=== PATIENT | female | born 1985 | race Caucasian/White ===

== ENCOUNTER 2018-01-30 02:49 | Inpatient (IN) | payer MEDICAID ==
[~2018-01-30] VITALS: Ht 152.4 cm; Wt 62.6 kg
[2018-01-30 03:26] LABS: BASOPHIL % 0.7 % (0-2); PLATELET COUNT 301 x10^3mcL (130-400); RED CELL DISTRIBUTION WIDTH 13.7 % (11.5-14.5)
[2018-01-30 03:35] LABS: CALCIUM 9.2 mg/dL (8.5-10.1); CARBON DIOXIDE 22.7 mmol/L (21-32); CHLORIDE SERUM 102 mmol/L (98-107); CREATININE SERUM 0.6 mg/dL (0.6-1.0); GFR1 > 60 mL/min; GLUCOSE SERUM 111 mg/dL (74-106); POTASSIUM SERUM 3.8 mmol/L (3.5-5.1); SODIUM SERUM 136 mmol/L (136-145)
[2018-01-30 03:39] LABS: ALBUMIN 3.3 g/dL (3.4-5.0); ALKALINE PHOSPHATASE 84 U/L (46-116); ALT/SGPT 22 U/L (14-59); AST/SGOT 16 U/L (15-37); BILIRUBIN TOTAL 0.23 mg/dL (0.20-1.00); LIPASE 138 IU/L (73-393); TOTAL PROTEIN, SERUM 7.3 g/dL (6.4-8.2)
[2018-01-30 05:57] LABS: MAGNESIUM 1.6 mg/dL (1.8-2.4); PHOSPHOROUS 4.5 mg/dL (2.5-4.9)
[2018-01-30 06:03] LABS: T3 TOTAL 1.62 ng/mL
[2018-01-30 06:05] VITALS: BP 95/56
[2018-01-30 06:05] LABS: CHOLESTEROL/HDL RATIO 2.6
[2018-01-30 07:25] LABS: FREE T4 1.11 ng/dL (0.76-1.46)
[2018-01-30 07:31] LABS: T4(THYROXINE) 13.7 ug/dL (4.7-13.3)
[2018-01-30 09:02] VITALS: BP 106/68
[2018-01-30 12:09] LABS: microscopic required? YES; urine erythrocyte 2+ (NEGATIVE)
[2018-01-30 12:17] LABS: AMPHETAMINE QUAL UR NONE DETECTED (NEG <=1000)
[2018-01-30 13:04] VITALS: BP 104/67
[2018-01-30 16:43] VITALS: BP 94/58
[2018-01-30 21:06] VITALS: BP 105/65
[2018-01-31 05:48] VITALS: BP 99/63
[2018-01-31 06:17] LABS: BASOPHIL % 0.2 % (0-2); PLATELET COUNT 264 x10^3mcL (130-400); RED CELL DISTRIBUTION WIDTH 13.9 % (11.5-14.5)
[2018-01-31 06:22] LABS: CALCIUM 8.5 mg/dL (8.5-10.1); CARBON DIOXIDE 21.1 mmol/L (21-32); CHLORIDE SERUM 105 mmol/L (98-107); CREATININE SERUM 0.5 mg/dL (0.6-1.0); GFR1 > 60 mL/min; GLUCOSE SERUM 82 mg/dL (74-106); POTASSIUM SERUM 3.7 mmol/L (3.5-5.1); SODIUM SERUM 137 mmol/L (136-145)
[2018-01-31] MEDS ORDERED: MAC100 PO (07:15)
[2018-01-31] MEDS ORDERED: LAC PO (07:16)
[2018-01-31 09:16] VITALS: BP 96/59
[2018-01-31 09:56] VITALS: BP 96/59
== END 2018-01-31 11:15 | disposition home or self-care (01) | DRG 566 ==
LOC: ED 02:49 → DU 05:02
PROVIDERS: Emergency Medicine; Family Medicine
DX: O99.611 Diseases of the digestive system complicating pregnancy, first trimester (principal); E44.0 Moderate protein-calorie malnutrition; E83.42 Hypomagnesemia; K80.20 Calculus of gallbladder without cholecystitis without obstruction; O25.11 Malnutrition in pregnancy, first trimester; O23.41 Unspecified infection of urinary tract in pregnancy, first trimester; Z3A.08 8 weeks gestation of pregnancy; Z68.26 Body mass index [BMI] 26.0-26.9, adult
CPT/HCPCS: 83880; 84439; J0694; J0696; J2270; J2765; J3490; J7030; Q0092; Q0162